=== PATIENT | male | born 1975 ===

== ENCOUNTER 2017-11-15 14:11 | Emergency (ER) | payer MEDICAID ==
[2017-11-15 14:18] VITALS: TEMP 97.8; O2SAT 98
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
--- NOTE | 2017-11-15 15:14 | CT ---
Date of service: 11/15/2017 PROCEDURE: CT HEAD WITHOUT CONTRAST. HISTORY: Injury COMPARISON: None available. TECHNIQUE: Axial computed tomography images were obtained through the head/brain without intravenous contrast. Radiation dose: Total exam DLP = 1014.3 mGy-cm. This CT exam was performed using one or more of the following dose reduction techniques: Automated exposure control, adjustment of the mA and/or kV according to patient size, and/or use of iterative reconstruction technique. FINDINGS: HEMORRHAGE: No intracranial hemorrhage. BRAIN: Johnson-white matter differentiation is preserved. There is no mass, mass effect or abnormal extra-axial fluid collection. There is no territorial infarction. VENTRICLES: The ventricles are normal in size, shape and configuration. CALVARIUM: There is no calvarial fracture or extracranial soft tissue swelling. PARANASAL SINUSES: There is a small retention cyst/polyp in the anterior sphenoid sinus moderate mucoperiosteal thickening in the left posterior ethmoid air cells. MASTOID AIR CELLS: Predominantly clear. OTHER FINDINGS: None. IMPRESSION: No acute intracranial abnormality.
[2017-11-15 15:35] VITALS: BP 129/80; PULSE 80; RESP 16
== END 2017-11-15 15:34 ==
LOC: ED 14:11
DX: S09.90XA Unspecified injury of head, initial encounter (principal); Y08.89XA Assault by other specified means, initial encounter; Y92.009 Unspecified place in unspecified non-institutional (private) residence as the place of occurrence of the external cause; Z65.3 Problems related to other legal circumstances